=== PATIENT | male | born 1990 | race Caucasian/White ===

== ENCOUNTER 2018-11-08 06:06 | Emergency (ER) | payer OTHER ==
[~2018-11-08] VITALS: Ht 175.3 cm; Wt 95.3 kg
[2018-11-08 06:10] VITALS: Ht 175.3 cm; Wt 95.3 kg
[2018-11-08 08:25] VITALS: BP 125/75
== END 2018-11-08 08:25 | disposition home or self-care (01) ==
LOC: ED 06:06
DX: S22.20XA Unspecified fracture of sternum, initial encounter for closed fracture (principal); I10 Essential (primary) hypertension; V49.9XXA Car occupant (driver) (passenger) injured in unspecified traffic accident, initial encounter; Y93.I9 Activity, other involving external motion; Y92.413 State road as the place of occurrence of the external cause; Y99.8 Other external cause status
CPT/HCPCS: 90715; J1885; Q9967